=== PATIENT | male | born 1940 | race Caucasian/White ===

== ENCOUNTER 2016-05-13 08:00 | Outpatient (CLI) | payer MEDICARE | END 2016-05-13 23:59 | DX: Z79.899 Other long term (current) drug therapy (principal) ==

== ENCOUNTER 2016-05-13 15:15 | Outpatient (CLI) | payer MEDICARE | END 2016-05-13 15:16 | disposition home or self-care (01) | DX: Z51.5 Encounter for palliative care (principal); K63.89 Other specified diseases of intestine; J44.9 Chronic obstructive pulmonary disease, unspecified; G89.4 Chronic pain syndrome; M19.90 Unspecified osteoarthritis, unspecified site; F31.9 Bipolar disorder, unspecified; Z79.899 Other long term (current) drug therapy; Z74.01 Bed confinement status; I69.351 Hemiplegia and hemiparesis following cerebral infarction affecting right dominant side; G20 Parkinson's disease; Z79.891 Long term (current) use of opiate analgesic; Z79.82 Long term (current) use of aspirin; Z66 Do not resuscitate ==

== ENCOUNTER 2016-12-20 13:30 | Outpatient (CLI) | payer MEDICARE ==
--- NOTE | 2016-12-20 19:09 | CONSULTATION NOTE ---
Palliative Care Follow Up - Referral Referring Provider: Dr. Evangelista Stevens Time of Visit: 8439-1227 Referral setting: Home (Visit taxing and considerable effort for the patient to leave the home, he is bedbound and would not be able to access medical care without an ambulance transfer.) Referral Reason: Hypertension - Information Sources Records reviewed: Other (b/p logs per caregiver) History/Review of Systems obtained from: Family (sister Mariajose, cg now for 17 years) Exam limitations: Clinical condition (patient nonverbal; unable to do anything other than nod) - History of Present Illness Update Brief HPI Update: This is a complicated 76-year-old gentleman who has underlying COPD, 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 Palliative care does provide home visits every several months, patient is unable to access primary care provider, and goal is to focus on comfort and no aggressive measures. Today I find, his caregiver has been monitoring his blood pressures, they have been elevated for about 4-6 weeks. Running fairly high in the a.m. as high as 210/127, but decreasing by the late afternoon. Today I find his blood pressure at 152/72, this is more than norm as far as average blood pressures noted in the log. Patient does have a history of stroke, he is currently not on any antihypertensive, it is unclear what precipitated her to start taking blood pressures, but are reviewing them now. 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 Rashes appear to be controlled. He does have some slight red irritation under his chin secondary to moisture from drooling. Patient does appear to be weight neutral, he is still supported by 3 times a day health shakes, and continues to be well nourished and hydrated. 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 She is keeping him moving with the current lactulose dosing of 3 tablespoons twice daily. His sister is not looking forward to the fall, patient tends to react poorly to the darker days. Her perception is he is more aggressive, tends to be less cooperative, and occasionally strikes out when providing care. She does feel the current dosing of haldol has helped plateau some of the fluctuating aggression/agitation. Social History - Living Situation Living arrangement: At home Living Situation: With family (Sister Mariajose provides 20/09 care, had hoped to be moving in with her daughter and family, but they have not moved yet. At that time, would place patient in NH.) Medications/Allergies - Medications Home Medications: Ambulatory Orders Medication Instructions Recorded Confirmed Albuterol Sulfate [Proair Hfa 2 puffs INH Q4HR PRN 12/20/16 12/20/16 Inhaler] Aspirin 81 mg PO DAILY 12/20/16 12/20/16 Baclofen 10 mg PO BID 12/20/16 12/20/16 Baclofen 20 mg PO QDLUNCH 12/20/16 12/20/16 Bisacodyl Supp [Dulcolax Supp] 10 mg NV DAILY 12/20/16 12/20/16 Carbidopa/Levodopa [Carbidopa-Levo 1 tab PO TID 12/20/16 12/20/16 ER 25-100 Tab] Carboxymethylcellulose Sodium 1 - 2 drops TOP Q6HR PRN 12/20/16 12/20/16 [Refresh Tears] Enemeez 1 applic NV DAILY 12/20/16 Fluticasone [Flonase] 1 spray INH DAILY PRN 12/20/16 12/20/16 Haloperidol Oral Soln [Haldol Oral 0.2 ml PO TID 12/20/16 12/20/16 Soln] Lactulose 3 tab PO BID 12/20/16 12/20/16 Lisinopril 5 mg PO DAILY 12/20/16 12/20/16 Morphine Sulfate [Morphine Sulf 10 mg PO QID 12/20/16 12/20/16 Oral (Roxanol)] Prochlorperazine Supp [Compazine 0.5 - 1 supp NV Q8HR PRN 12/20/16 12/20/16 Supp] Psyllium [Metamucil] 1 tab PO DAILY 12/20/16 12/20/16 Risperidone 1.5 mg PO ACHS 12/20/16 12/20/16 Tiotropium [place] [Spiriva] 18 mcg INH BID 12/20/16 12/20/16 - Allergies Allergies/Adverse Reactions: Allergies Allergy/AdvReac Type Severity Reaction Status Date / Time No Known Drug Allergies Allergy Verified 12/20/16 19:24 Review of Systems - Constitutional Constitutional: reports: Weight stable (per sister's perception) - Ears, Nose & Throat Ears, Nose & Throat: reports: Dental decay (most teeth gone), Other (occasional choking) - Gastrointestinal Gastrointestinal: reports: Good appetite - Genitourinary Genitourinary: reports: Incontinence - Musculoskeletal Musculoskeletal: reports: Stiffness, Limited range of motion, Other (bedbound on RIGO) - Integumentary Integumentary: reports: Nail changes (toe nails fungal; fallen off) - Neurological Neurological: reports: Other (unable to verbally communicate; few nods) - Psychiatric Psychiatric: reports: Aggitation (per sister's perception) - Hematologic/Lymphatic Hematologic/Lymphatic: denies: Recurrent infections - All Other Systems All Other Systems: reports: Reviewed and negative - Other Findings Other Findings: ROS provided by sister Physical Exam - Vital Signs Temperature: 97.5 C Pulse Rate: 82 Respiratory Rate: 18 O2 Saturation: 98 (ra @ rest) Blood Pressure: 152/72 - Physical Exam General Appearance: positive: No acute distress Eyes Bilateral: positive: Other (watery slightly reddened eyes) ENT: positive: Other (few teeth left; mouth moist no s/s candidasis) Neck: positive: Trachea midline, Other (thickened neck limited ROM) Cardiovascular: positive: Regular rate & rhythm Respiratory: positive: Diminished in bases. negative: Wheezes, Rales, Rhonchi Abdomen: positive: Tenderness (with deep palpation), Distended, Obese, Other ( diminished bowel tone) Skin: positive: Pallor Extremities: positive: Pedal edema, Other (contractures severe right side from stroke; limited movement of fingers on left does control remote; can assist slightly with holding when turned on side; not able to move any extremities on command; bedbound) Neurologic/Psychiatric: positive: Flat affect, Other (unknown orientation; nodding only in affirmative at times) Palliative Care - POLST Patient has POLST: Yes POLST Status: DNR, Comfort Measures Pain: Pain unchanged, Comment (assumed mostly osteoarthritic in nature; patient reports pain with moving; sister reports does appear to be good balance, when backs off MS seems more uncomfortable with turnng and at rest) Performance Status: Sister provides all support for ADLs, including bathing. She does assist patient with health shakes, when he is agitated sometimes he will spit them out. She has noted occasional choking but with liquid diet does better. This is also related to his lack of dentition. - Palliative Care Discussion: Patient despite all his multiple comorbidities, has remained fairly stable. Though it does appear his blood pressure has been escalating. In weighing the benefits and burdens of moving forward, will go ahead and attempt to treat. Patient is in his own home setting, has always tended to be an introvert. Has not had any recent hospitalizations. Currently sister is still willing to take on caregiving role, did have her surgery this summer, her kids did pitch in and provide support so she could rest and recover. Impression and Recommendations - Palliative Care Impression: This is a 76-year-old gentleman with multiple comorbidities, he presents today with increasing hypertension, will go ahead and treat. 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 His care needs are being met, and has been able to remain home in his own setting. Recommendations/Counseling Done: 1. Hypertension. Will initiate lisinopril at 5 mg for 1 week, review blood pressures and titrate accordingly. Will draw labs in 3-4 weeks. Sister will continue to monitor blood pressures, and instructions have been reviewed. 2. Jasmina's syndrome. Current bowel program currently effective, though this does require disimpaction. Has managed to avoid hospitalization, remains at high risk for sequela from this. 3. Chronic obstructive pulmonary disease, currently controlled. He remains on appropriate medications TO Jose p.m. as well as albuterol for breakthrough, has not needed this. Flu shot was administered. 3. 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 He is currently being managed with his 4 times daily morphine, no titration provided. 4. Bipolar disorder current, managed as current medications. Haldol at low doses is managing his intermittent agitation. 5. Advanced care planning. The patient remains at continued risk for an acute event, infection, or rehospitalization. Patient continues to be managed safely in his home setting, palliative care will continue to provide support. Thank you Dr. Stevens for allowing me to support this patient's complicated situation. I will continue to see him every few months. Will see him though in 3-4 weeks to titrate his hypertensive medications which we are initiating today. Time Spent: 30 minutes with greater than 50% of this done in counseling coordination of care , providing flu shot, initiated treatment for hypertension.
== END 2016-12-20 13:31 | disposition home or self-care (01) ==
LOC: PC 13:30
PROVIDERS: ATTEND Nurse Practitioner Adult Health
DX: Z51.5 Encounter for palliative care (principal); I10 Essential (primary) hypertension; K59.8 Other specified functional intestinal disorders; J44.9 Chronic obstructive pulmonary disease, unspecified; G89.4 Chronic pain syndrome; M15.9 Polyosteoarthritis, unspecified; F31.9 Bipolar disorder, unspecified; I69.351 Hemiplegia and hemiparesis following cerebral infarction affecting right dominant side; G20 Parkinson's disease; Z87.2 Personal history of diseases of the skin and subcutaneous tissue; Z74.01 Bed confinement status; Z66 Do not resuscitate
CPT/HCPCS: 99348

== ENCOUNTER 2017-01-17 14:00 | Outpatient (CLI) | payer MEDICARE ==
[2017-01-17 17:17] LABS: CALCIUM 8.8 mg/dL (8.5-10.3); CREATININE 0.6 mg/dL (0.6-1.2); POTASSIUM 3.9 mmol/L (3.5-5.0)
== END 2017-01-17 14:01 | disposition home or self-care (01) ==
LOC: LAB.R 14:00
PROVIDERS: ATTEND Nurse Practitioner Adult Health
DX: Z79.899 Other long term (current) drug therapy (principal)
CPT/HCPCS: 80048

== ENCOUNTER 2017-05-27 08:00 | Outpatient (CLI) | payer MEDICARE ==
--- NOTE | 2017-05-28 14:45 | CONSULTATION NOTE ---
Palliative Care Follow Up - Referral Referring Provider: Dr. Evangelista Stevens Time of Visit: 4845-0150 Referral setting: Home (patient bedbound; would need ambulance transfer to leave the home) Referral Reason: Parkinsons/COPD/HTN - Information Sources Records reviewed: Previous records reviewed History/Review of Systems obtained from: Family (Sister Mariajose provided information) Exam limitations: Clinical condition (patient nonverbal; though does nod yes/no appropriately to simple questions) - History of Present Illness Update Brief HPI Update: This is a complicated 77-year-old gentleman who has underlying COPD, right hemiparesis as a result of his CVA, central pain syndrome, bipolar disorder, Parkinson's, and 0gilivie syndrome. He is found to have untreated hypertension, had initiated lisinopril with increase up to 15 mg, his blood pressures have run anywhere from 123/74-200/97. Most often run in the mid range, will go ahead and increase to 20 mg daily. Patient has not had any choking episodes, he is on a liquid diet he gets health shakes 3 times a day, he does appear to have actually some significant weight gain With noted fullness and face, increase in neck girth and "shins", as well as abdominal distention. He does have some muscle wasting in his upper extremities, but his weight gain does make her caregiving more burdensome. He has not had any exacerbations of his COPD this winter, they are managing his bowels with an aggressive bowel program with a daily enemas, and disimpaction as needed. She has rotated lotions, skin without any signs or symptoms of breakdown, but he does get moisture in his folds. He does have intermittent outbursts of anger, as demonstrated by mouth noises, and kicking with his left leg. She does take this all in stride though and just reapproach his later. Patient himself in yes/no questioning denies any distress, pain, does admit to some depression, but said no if he wanted anything changed. He is bedbound, has access still to the remote, watches TV most of the time, and sleeps a greater part of the day. He is totally dependent on his sister for all ADLs as well as feeding. She does have children who come in and out and interact with him, as well as she checks on him frequently through the day. Social History - Living Situation Living arrangement: At home Living Situation: With family (Sister Mariajose's home; provided 20/09 care with some respite from her children) Medications/Allergies - Medications Home Medications: Ambulatory Orders Medication Instructions Recorded Confirmed Albuterol Sulfate [Proair Hfa 2 puffs INH Q4HR PRN 12/20/16 05/28/17 Inhaler] Aspirin 81 mg PO DAILY 12/20/16 05/28/17 Baclofen 10 mg PO BID 12/20/16 05/28/17 Baclofen 20 mg PO QDLUNCH 12/20/16 05/28/17 Bisacodyl Supp [Dulcolax Supp] 10 mg NE DAILY 12/20/16 05/28/17 Carbidopa/Levodopa [Carbidopa-Levo 1 tab PO TID 12/20/16 05/28/17 ER 25-100 Tab] Carboxymethylcellulose Sodium 1 - 2 drops TOP Q6HR PRN 12/20/16 05/28/17 [Refresh Tears] Enemeez 1 applic NE DAILY 12/20/16 05/28/17 Fluticasone [Flonase] 1 spray INH DAILY PRN 12/20/16 05/28/17 Haloperidol Oral Soln [Haldol Oral 0.2 ml PO TID 12/20/16 05/28/17 Soln] Lactulose 3 tab PO BID 12/20/16 05/28/17 Lisinopril 20 mg PO DAILY 12/20/16 05/28/17 Morphine Sulfate [Morphine Sulf 10 mg PO QID 12/20/16 05/28/17 Oral (Roxanol)] Prochlorperazine Supp [Compazine 0.5 - 1 supp NE Q8HR PRN 12/20/16 05/28/17 Supp] Psyllium [Metamucil] 1 tab PO DAILY 12/20/16 05/28/17 Tiotropium [place] [Spiriva] 18 mcg INH BID 12/20/16 05/28/17 risperiDONE [Risperidone] 1.5 mg PO ACHS 12/20/16 05/28/17 lamoTRIgine [LaMICtal] 100 mg PO BID 05/28/17 05/28/17 - Allergies Allergies/Adverse Reactions: Allergies Allergy/AdvReac Type Severity Reaction Status Date / Time No Known Drug Allergies Allergy Verified 12/20/16 19:24 Review of Systems - Ears, Nose & Throat Ears, Nose & Throat: reports: Dental decay - Respiratory Respiratory: reports: Wheezing (intermittent) - Gastrointestinal Gastrointestinal: reports: Other (bowel regimen daily with enemeze; disimpaction prn; uses lactulose/metamucil orally. Has been successful) - Genitourinary Genitourinary: reports: Incontinence - Musculoskeletal Musculoskeletal: reports: Stiffness, Limited range of motion (RUE with contracture/stroke), Other (has stiffness/spasms controlled with baclofen) - Integumentary Integumentary: reports: Rash (sister uses a variety of rotating lotions/creams to manage skin issues), Other - Neurological Neurological: reports: Other (bedbound; nonverbal able to nod yes and no) - Psychiatric Psychiatric: reports: Aggitation (patient does act out with loud noises toward sister; cycles with mood per her report; spends most of time watching TV; can still manage remote) - Hematologic/Lymphatic Hematologic/Lymphatic: denies: Recurrent infections - All Other Systems All Other Systems: reports: Reviewed and negative (sister providing ROS) Physical Exam - Vital Signs Temperature: 98.1 C Pulse Rate: 82 Respiratory Rate: 20 O2 Saturation: 92 (ra @ rest) Blood Pressure: 172/84 - Physical Exam General Appearance: positive: No acute distress, Other (able to only nod yes/no to questions) Eyes Bilateral: positive: Other (eyes somewhat watery; conjunctivae slightly reddend) ENT: positive: No signs of dehydration, Other (broken off teeth as gumline; no signs of abcess) Neck: positive: Stiff neck, Other (neck much enlarged; appears quinn in face with more "chins") Cardiovascular: positive: Regular rate & rhythm Respiratory: positive: Diminished throughout. negative: Wheezes, Rales, Rhonchi Abdomen: positive: Non-tender, Soft, Obese Skin: positive: Dryness, Other (moist in skin folds/ but no s/s of candidiasis; right heel where stage IV decub; hardened scar tissue but no evidence of increase breakdown;) Extremities: positive: No pedal edema. negative: Full ROM (patient with contraction in right arm/elbow/hand limited ROM in shoulders; Right leg stiff and not spontanous movement; left hand with contractures but still manuever remote control if place in hand) Neurologic/Psychiatric: positive: Flat affect Palliative Care - POLST Patient has POLST: Yes POLST Status: DNR Pain: Pain unchanged, Location (Patient using 10 mg morphine sulfate 4 times daily for right-sided central stroke pain; spasms controlled with baclofen, nodded yes if he was satisfied with current regimen, noted no if I could titrate it back..Sisters perception is this is worked well, he does have some fluctuations with the weather, and becomes more irritable.) Depression: Moderate (4-6) (Sisters perception is he does get more irritable and depressed in the winter months, feels like this spring she is looking forward to having him come out of that. He does strike out literally with his left hand and kicks that her when he is agitated, usually this is an response to changing, turning, or repositioning him.) Constipation: Yes, Managed Performance Status: Patient bedbound, totally dependent on sister for all ADLs, is still to suck through a straw has had no choking episodes.. He does need manual disimpaction and a fairly aggressive bowel program to manage his Oligivie syndrome. - Palliative Care Discussion: Conversation was had with sisterevelina Billy, patient has multiple comorbidities, he is at risk for the sequela been bedbound which includes but not limited to pneumonia, aspiration pneumonia skin breakdown and on for him bowel obstruction/ impaction. His sister is provided excellent care and he has not been hospitalized, nor had any illnesses over the last several months. She does admit getting older, his care is fairly physically intense is he probably weighs close to 225 pounds.At this point in time there is no further talk of her moving. She is looking forward to actually though having a vacation mid summer, her children will cover for her. She feels fairly strongly that if he were to be placed, his care would be compromised, as this is been her experience in the past. The focus still is on comfort measures, managing in meeting his current care needs, though at this point in time she would not have him return to the hospital unless there was a need to manage his distress Impression and Recommendations - Palliative Care Impression: This is a 77-year-old woman with multiple comorbidities, his hypertension currently is not controlled, he has had no COPD exacerbations to the winter, his [place] syndrome has been managed with aggressive bowel program, his care needs are being managed well by his sister. He does remain at high risk for aspiration, COPD exacerbation, and rehospitalization regarding his O[place]ivie syndrome. The goals remain to treat for comfort only, avoid hospitalization, and transition to hospice when appropriate Recommendations/Counseling Done: 1. Hypertension. Lisinopril had been titrated up to 15 mg, blood pressures have continued to drift up again though initially showed response. Labs drawn in December without any concern. Will titrate up to 20 mg today. New prescription provided 2. Ogilivies syndrome. Current bowel program has been effective, though this is required disimpaction. He has remained without further hospitalization or ED visits. No changes required. 3. COPD. Patient without any recent exacerbations, is not needing the albuterol for wheezing. Patient still able to clear his secretions. 4. Chronic pain syndrome, secondary central stroke. Currently managed and short acting morphine 10 mg 4 times a day, no titration made at this point in time, have tried diminished dosing in the past with increase in discomfort, agreed to leave as is for now. Prescription provided. 5. Advanced care planning. JOSE ST form in place, the goal remains for him to avoid hospitalization, and this at end-of-life, hospice support for in the home setting. Time Spent: 30 minutes with greater than 50% of this done in counseling with sister regarding care plan, review of medications, and anticipatory guidance
== END 2017-05-27 08:01 | disposition home or self-care (01) ==
LOC: PC 08:00
PROVIDERS: ATTEND Nurse Practitioner Adult Health
DX: Z51.5 Encounter for palliative care (principal); I10 Essential (primary) hypertension; K63.89 Other specified diseases of intestine; J44.9 Chronic obstructive pulmonary disease, unspecified; G89.0 Central pain syndrome; I69.351 Hemiplegia and hemiparesis following cerebral infarction affecting right dominant side; G20 Parkinson's disease; F31.9 Bipolar disorder, unspecified; F41.9 Anxiety disorder, unspecified; G40.909 Epilepsy, unspecified, not intractable, without status epilepticus; Z74.01 Bed confinement status; Z79.899 Other long term (current) drug therapy; Z66 Do not resuscitate; Z79.891 Long term (current) use of opiate analgesic
CPT/HCPCS: 99348

== ENCOUNTER 2017-08-16 13:50 | Outpatient (CLI) | payer MEDICARE ==
--- NOTE | 2017-08-16 17:34 | CONSULTATION NOTE ---
Palliative Care Follow Up - Referral Referring Provider: Dr. 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 He does have a newer diagnosis of hypertension, which is now controlled with the lisinopril 20 mg. Patient is bedbound, is alert, is nonverbal. He can occasionally nod yes to specific questions, though unclear if they are accurate in response. He does have dysphagia, and is supported by health shakes 3 times a day, his sister says he has not had any increase in choking, but some noted delay in swallowing. 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 He has no skin issues identified, and his right stage IV heel decub remains closed. He does spend most of his day watching TV, he does have some access to the remote and is able to change channels, a sleeps a greater part of the day. He is totally dependent on his sister for all ADLs as well as feeding. She does have some children who come in and out through the week, and do provide her respite on Saturdays. Social History - Living Situation Living arrangement: At home Living Situation: With family (sister primary caregiver for almost two decades/ patient is total care she gets some respite from children on Saturdays) Medications/Allergies - Medications Home Medications: Ambulatory Orders Medication Instructions Recorded Confirmed Albuterol Sulfate [Proair Hfa 2 puffs INH Q4HR PRN 12/20/16 08/16/17 Inhaler] Aspirin 81 mg PO DAILY 12/20/16 08/16/17 Baclofen 10 mg PO BID 12/20/16 08/16/17 Baclofen 20 mg PO QDLUNCH 12/20/16 08/16/17 Bisacodyl Supp [Dulcolax Supp] 10 mg TN DAILY 12/20/16 08/16/17 Carbidopa/Levodopa [Carbidopa-Levo 1 tab PO TID 12/20/16 08/16/17 ER 25-100 Tab] Carboxymethylcellulose Sodium 1 - 2 drops TOP Q6HR PRN 12/20/16 08/16/17 [Refresh Tears] Enemeez 1 applic TN DAILY 12/20/16 08/16/17 Fluticasone [Flonase] 1 spray INH DAILY PRN 12/20/16 08/16/17 Haloperidol Oral Soln [Haldol Oral 0.2 ml PO TID 12/20/16 08/16/17 Soln] Lactulose 3 tab PO BID 12/20/16 08/16/17 Lisinopril 20 mg PO DAILY 12/20/16 08/16/17 Morphine Sulfate [Morphine Sulf 10 mg PO QID 12/20/16 08/16/17 Oral (Roxanol)] Prochlorperazine Supp [Compazine 0.5 - 1 supp TN Q8HR PRN 12/20/16 08/16/17 Supp] Psyllium [Metamucil] 1 tab PO DAILY 12/20/16 08/16/17 Tiotropium [place] [Spiriva] 18 mcg INH BID 12/20/16 08/16/17 risperiDONE [Risperidone] 1.5 mg PO QPM 12/20/16 08/16/17 lamoTRIgine [LaMICtal] 100 mg PO BID 05/28/17 08/16/17 - Allergies Allergies/Adverse Reactions: Allergies Allergy/AdvReac Type Severity Reaction Status Date / Time No Known Drug Allergies Allergy Verified 12/20/16 19:24 Review of Systems - Constitutional Constitutional: reports: Other (appears stable) - Ears, Nose & Throat Ears, Nose & Throat: reports: Dental decay (has lost most of his teeth) - Gastrointestinal Gastrointestinal: reports: Other (requires bowel program including disimpaction daily) - Genitourinary Genitourinary: reports: Incontinence - Musculoskeletal Musculoskeletal: reports: Stiffness, Limited range of motion, Muscle weakness, Other (bedbound) - Integumentary Integumentary: reports: Rash, Dryness, Other (no open areas) - Neurological Neurological: reports: Other (nonverbal does yell "hey" if need to get sisters attention i.e. the remote or tv) - Psychiatric Psychiatric: reports: Behavior disturbances - Hematologic/Lymphatic Hematologic/Lymphatic: denies: Recurrent infections - Other Findings Other Findings: limited ROS with sister Physical Exam - Vital Signs Temperature: 97.8 C Pulse Rate: 86 Respiratory Rate: 18 O2 Saturation: 95 (ra @ rest) Blood Pressure: 132/82 - Physical Exam General Appearance: positive: No acute distress, Alert Eyes Bilateral: positive: Other (blephritis; right eye slightly reddened;) ENT: positive: No signs of dehydration, Other (teeth broken would not open mouth ) Neck: positive: Other (large thick neck) Cardiovascular: positive: Regular rate & rhythm Respiratory: positive: Diminished in bases. negative: Wheezes, Rales, Rhonchi Abdomen: positive: Non-tender, Soft, Abnml bowel sounds (sluggish), Obese, Other (patient with inverted penis; large swollen scrotal sac). negative: Guarding Skin: positive: Rash (moist groin folds), Pressure wound (closed stage IV on right heel; calloused and scarreed;) Extremities: positive: No pedal edema, Other (left hemiplegia; left hand contracted; right with increased limited mobility is still able to use remote) Neurologic/Psychiatric: positive: Flat affect, Other (follows me with eyes; cooperates as able; few head nods yes to questons) Palliative Care - POLST Patient has POLST: Yes POLST Status: DNR, Comfort Measures (goal is NOT to have return to hospital; have a comfortable at home) Pain: Location (pain multifactorial; has joint pain osteoarthritis; sharp shooting pain left side central stroke pain;currently on MS 10 mg QID appears to be adequate) Tiredness/Fatigue: Moderate (4-6) (sleeps 9-8 am; longer nap in day;) Drowsiness/Sedation: None Sleep: Sleeps well Constipation: Comment (patient requires multiple bowel meds/stimulation with supp/enmeez and often disimpation; sister provides daily) Impression and Recommendations - Palliative Care Impression: This is a 77-year-old gentleman with multiple comorbidities, his hypertension is better controlled. His Holden Syndrome has been currently managed with an aggressive bowel program, he has not had any recent hospitalizations and continues to be able to be managed at home. He does remain at high risk for aspiration, COPD exacerbation and rehospitalization. The goals remain to treat for comfort only avoid hospitalization and transition to hospice when appropriate. Recommendations/Counseling Done: 1. Hypertension. Patient on currently lisinopril 20 mg daily, his blood pressures are much improved, instructed sister to check blood pressures daily though after medications have been administered. Labs were drawn in December without any concern. 2. Holden's syndrome. Current bowel program has been effective, though this does require intermittent and disimpaction. I am concerned his sister is going to be gone for a week in September, is unclear who is willing to follow through on the bowel program that can include enemas and disimpaction. She did agreed to follow-up and start planning and/or training with family members who are covering. 3. COPD. Patient without any recent exacerbations, presently still able to clear his secretions. 4. Chronic pain syndrome, secondary to central stroke. Patient is currently managed and short acting morphine 10 mg 4 times a day, at this point in time no tear dictation needed. Have tried diminished dosing in past with increased discomfort. Prescription provided 5. Advanced care planning. JOSE ST form in place, with comfort focused goals. Reviewed POLST Needs to be on the refrigerator, this is where the paramedics will look for it. We did did get out of her files, also copy taken to put on hospital records. Goals remain for him to avoid hospitalization and end-of- life hospice support for in the home setting. At this point time there is no plans for patient to be placed. She is planning vacation in [place] in September for 1 week, she has in the past placed him in the halfway, but finds them worse off and is not inclined to do so at this time. Currently she feels she still able to manage his care, though she is certainly getting older as well and he is requiring more hands-on care Time Spent: 45 minutes with greater than 50% of this done in counseling regarding caregiver stress, management of pain and symptom management, anticipatory guidance, palliative care to continue to provide intermittent check ups as patient unable to leave the home and consistent with goals of care for palliative approach, patient does not currently meet hospice criteria though prognosis is limited.
== END 2017-08-16 13:51 | disposition home or self-care (01) ==
LOC: PC 13:50
PROVIDERS: ATTEND Nurse Practitioner Adult Health
DX: Z51.5 Encounter for palliative care (principal); I10 Essential (primary) hypertension; K56.699 Other intestinal obstruction unspecified as to partial versus complete obstruction; J44.9 Chronic obstructive pulmonary disease, unspecified; G89.0 Central pain syndrome; G20 Parkinson's disease; I69.351 Hemiplegia and hemiparesis following cerebral infarction affecting right dominant side; R13.10 Dysphagia, unspecified; M19.90 Unspecified osteoarthritis, unspecified site; F31.9 Bipolar disorder, unspecified; Z74.01 Bed confinement status; Z79.899 Other long term (current) drug therapy; Z66 Do not resuscitate; Z79.891 Long term (current) use of opiate analgesic
CPT/HCPCS: 99349